=== PATIENT | female | born 1975 | race Caucasian/White ===

== ENCOUNTER 2016-09-07 10:27 | Emergency (ER) | payer OTHER ==
[2016-09-07 10:31] VITALS: BP 135/83; PULSE 76; TEMP 98.4; BMI 28.6
[2016-09-07] MEDS ORDERED: KETOROLAC TROMETHAMINE 60 MG/2 ML VIAL IM ONE (11:03)
[2016-09-07] MEDS ORDERED: KETOROLAC TROMETHAMINE 60 MG/2 ML VIAL ONE (11:36)
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
== END 2016-09-07 12:46 | disposition home or self-care (01) ==
LOC: JERFT 10:27
PROC: 3E0233Z Introduction of Anti-inflammatory into Muscle, Percutaneous Approach (ICD-10-PCS; principal; 2016-09-07)
DX: S29.012A Strain of muscle and tendon of back wall of thorax, initial encounter (principal); S16.1XXA Strain of muscle, fascia and tendon at neck level, initial encounter; V43.52XA Car driver injured in collision with other type car in traffic accident, initial encounter; Y93.89 Activity, other specified; Y92.410 Unspecified street and highway as the place of occurrence of the external cause; J45.909 Unspecified asthma, uncomplicated
CPT/HCPCS: 72125-TC; 84703; 99281-25

== ENCOUNTER 2021-04-06 19:56 | Emergency (ER) | payer BC, OTHER ==
[2021-04-06 20:05] VITALS: BMI 28.3
[2021-04-06] MEDS ORDERED: ACETAMINOPHEN 500 MG TABLET (FP) PO ONE (20:06)
[2021-04-06] MEDS ORDERED: KETOROLAC TROMETHAMINE 30 MG/1 ML VIAL IM ONE (20:07)
[2021-04-06] MEDS ORDERED: ACETAMINOPHEN 500 MG TABLET (FP) ONE (20:41)
[2021-04-06] MEDS ORDERED: KETOROLAC TROMETHAMINE 30 MG/1 ML VIAL ONE (20:41)
[2021-04-06 23:31] VITALS: BP 137/79; PULSE 80; TEMP 98
== END 2021-04-06 21:30 | disposition home or self-care (01) ==
LOC: JER 19:56
PROC: 3E0233Z Introduction of Anti-inflammatory into Muscle, Percutaneous Approach (ICD-10-PCS; principal; 2021-04-06)
DX: H66.90 Otitis media, unspecified, unspecified ear (principal)
CPT/HCPCS: 99283-25